=== PATIENT | female | born 1945 | race Caucasian/White ===

== ENCOUNTER 2024-10-19 21:22 | Emergency (ER) | payer MEDICARE, SELFPAY ==
[2024-10-19 21:23] VITALS: BP 143/120
[2024-10-19 21:46] VITALS: BP 140/77
[2024-10-19 22:00] VITALS: BP 139/72
--- NOTE | 2024-10-19 22:16 | ED.GENMED ---
History of Present Illness
<Ubaldo Campbell MD, Resident - Last Filed: 10/20/24 00:45>
General
Chief Complaint: Blood Pressure Problem
Source: patient and family
Exam Limitations: none
Time Seen by Provider: 10/19/24 22:14
Nursing documentation reviewed up to this point in time: agreed with
History of Present Illness
History of Present Illness:
This is a 79-year-old female with history of hyperlipidemia and hypertension on simvastatin and propranolol presenting today in the emergency department after an episode of diaphoresis and discomfort in bilateral upper extremities. She reported
that she had similar symptoms twice 2 days ago. The symptoms lasted only for few minutes. She states it is mostly discomfort and not pain. She never had similar episodes in the past. Her family thinks that when it happened again today she
panicked and that is why she had some sweating.
Additionally she informed me that she was not using simvastatin for few weeks and recently restarted it.
Off note she had some hemorrhoidal bleeding last week which resolved after using suppository recommended by PCP office.
She denies any other recent changes in medical history.
Past History
<Ubaldo Campbell MD, Resident - Last Filed: 10/20/24 00:45>
Past History
ED Past Medical History: GERD, HTN, Hypercholesterolemia and Other (Capone's palsy, hemorrhoids, essential tremors, nonalcoholic fatty liver, osteopenia)
ED Past Surgical History:
Social History
Tobacco: Non-smoker
Alcohol: None
Personal:
Living: with family
Employment: Retired
Family History
Family History: Other (Noncontributory)
Review of Systems
<Ubaldo Campbell MD, Resident - Last Filed: 10/20/24 00:45>
Review of Systems
Other source history: family
Constitutional: Reports no symptoms
EENT: Reports no symptoms
Respiratory: Reports no symptoms
Cardiac: Reports no symptoms
ABD/GI: Reports no symptoms
: Reports no symptoms
Musculoskeletal: Reports muscle pain (Bilateral upper extremity muscular discomfort; resolved upon arrival in the ER)
Neurological: Reports no symptoms
Endocrine: Reports no symptoms
Hematologic/Lymphatic: Reports no symptoms
Psychiatric: Reports no symptoms
Phy Exam
<Ubaldo Campbell MD, Resident - Last Filed: 10/20/24 00:45>
General Physical Exam
General Presentation: well appearing
General age: appears stated age
General Skin: warm
General Habitus: normal
General Mental: alert
General Hydration: appears well hydrated
Eye Exam
Eye Exam: PERRL, EOMI and conjunctiva normal
Gastrointestinal Exam
Gastrointestinal Exam: normal bowel sounds, non tender, soft and non distended
Neurological Exam
Neurological Exam: alert and oriented x3
Sensory
Sensory Exam: intact
Musculoskeletal Exam
Musculoskeletal Exam: full ROM
Psychiatric Exam
Psychiatric Exam: normal mood/affect
Course
<Ubaldo Campbell MD, Resident - Last Filed: 10/20/24 00:45>
Orders/Labs/Results
Orders:
Orders
10/19/24 21:26
ECG [Electrocardiogram (*1)] Urgent
Reason for Study: Hypertension, Benign
10/19/24 21:27
EKG- Treatment ONCE
10/19/24 23:24
Basic Metabolic Panel Urgent
Complete Blood Count/With Diff Urgent
Troponin I Urgent
Abnormal Lab Results
10/19/24
23:24
Chloride 110 H mmol/L
(98-107)
BUN 19 H mg/dl
(7-17)
Glucose 104 H mg/dl
(70-99)
10/19/24 23:24
10/19/24 23:24
Vital Signs
Initial and Last Documented VS:
Initial Vital Signs
Temp Pulse Resp BP Pulse Ox
97.6 F 65 18 143/120 98
10/19/24 21:23 10/19/24 21:23 10/19/24 21:23 10/19/24 21:23 10/19/24 21:23
Last Documented Vital Signs
Temp Pulse Resp BP Pulse Ox
97.6 F 57 16 149/71 96
10/19/24 21:23 10/20/24 00:00 10/20/24 00:00 10/19/24 23:21 10/20/24 00:00
<Floyd Hanks, DO - Last Filed: 10/19/24 23:10>
Orders/Labs/Results
Orders:
Orders
10/19/24 21:26
ECG [Electrocardiogram (*1)] Urgent
Reason for Study: Hypertension, Benign
10/19/24 21:27
EKG- Treatment ONCE
10/19/24 23:24
Basic Metabolic Panel Urgent
Complete Blood Count/With Diff Urgent
Troponin I Urgent
Abnormal Lab Results
10/19/24
23:24
Chloride 110 H mmol/L
(98-107)
BUN 19 H mg/dl
(7-17)
Glucose 104 H mg/dl
(70-99)
10/19/24 23:24
10/19/24 23:24
Vital Signs
Initial and Last Documented VS:
Initial Vital Signs
Temp Pulse Resp BP Pulse Ox
97.6 F 65 18 143/120 98
10/19/24 21:23 10/19/24 21:23 10/19/24 21:23 10/19/24 21:23 10/19/24 21:23
Last Documented Vital Signs
Temp Pulse Resp BP Pulse Ox
97.6 F 57 16 149/71 96
10/19/24 21:23 10/20/24 00:00 10/20/24 00:00 10/19/24 23:21 10/20/24 00:00
<Ubaldo Campbell MD, Resident - Last Filed: 10/20/24 00:45>
MDM/Problems Addressed
Differential Diagnosis Includes:
Medication(statin) side effect vs anemia vs less likely cardiac vs less likely hypoglycemia vs less likely thyroid disease
MDM/Problems Addressed:
Labs reviewed from [facility] from 09/28 , CBC, CMP, TSH, lipid unremarkable.
Will check repeat cbc, bmp, trops, ekg.
update 11:58: cbc, cmp, trops unremarkable.
Patient is stable for discharge. Advised to follow-up with primary care physician to discuss further and potentially discussion on the use of statin as that could be one of the possibility for her current symptoms. She referred understanding
<Ubaldo Campbell MD, Resident - Last Filed: 10/20/24 00:45>
*Pulse Oximetry
SaO2: 97
Oxygen Mode of Delivery: Room air
Patient hypoxic: no
<Floyd Hanks, DO - Last Filed: 10/19/24 23:10>
*EKG
Interpreted by ED Provider?: Yes
EKG Intrepretation Date: 10/19/24
EKG Intrepretation Time: 21:29
Interpretation: normal
Comparison EKG: no comparison EKG present
Heart Rate: 70
Rate: normal
Rhythm: sinus
[place]: normal axis
Interval: normal interval
QRS Pattern: normal QRS
Ischemia: no ischemia
*Tube Sorter Interpretation
Rate: normal
Interpretation: normal
Heart Rate: 72
Rhythm: sinus
*Critical Care Note
Total Time (30-74mins, 75-104mins- exclusive of procedures): Not Applicable
ED Attending Note
<Ubaldo Campbell MD, Resident - Last Filed: 10/20/24 00:45>
-
Portions of this chart may have been created with voice recognition software.� Occasional wrong word or��sound alike� substitutions may have occurred due to the inherent limitations of voice recognition software.
<Floyd Hanks, DO - Last Filed: 10/19/24 23:10>
ED Attending Note
Patient seen and examined by attending physician: Yes
I performed a history and physical exam of patient and discussed management with resident, I reviewed resident's note and agree with documented findings and plan of care.: Yes
ED Attending Note:
I reviewed and agree with history and treatment plan by Ubaldo Campbell MD. My exam revealed
Physical Exam
General: no apparent distress, not acutely ill
Neck: supple. no meningeal signs. normal posterior pharynx
Heart: s1/s2 regular rate and rhythm, no murmur. equal radial
pulses.
HEENT: Pupils equal round reactive to light, EOMI
Lungs: no acute respiratory distress. clear bilaterally
Abdomen: normal bowel sounds. not tender. no CVAT
Neuro: alert and oriented. no focal neurological deficits cranial nerves II through XII intact
Skin: no rash
Psychiatric: well kept. interactive and cooperative
Extremities: no edema. no calf tenderness. negative homans. good distal pulses
Patient with multiple episodes of intermittent left arm pain and right hand pain. She had an episode of diaphoresis as well. The symptoms all occurred at rest. She denies any chest pain. First episode started several days ago. Will check
troponin CBC and BMP. EKG normal. No ischemia. If negative, patient will be discharged to follow-up with primary care.
Discharge Plan
Departure
Patient Disposition: Home (Routine Discharge)
Date of Disposition: 10/20/24
Time of Disposition: 00:21
Patient with high blood pressure during this ER visit?: Yes
Condition: Good
Discharge Problem:
Arm pain
Instructions: BLOOD PRESSURE
Prescriptions:
No Action
propranolol 60 MG capsule,extended release 24 hr
60 mg PO DAILY
simvastatin 40 MG tablet
40 mg PO QPM
aspirin 81 MG tablet,chewable
81 mg PO .EVERYOTHERDAY
prednisone 20 MG tablet
40 mg PO DAILY Qty: 10 0RF
Rx Instructions:
40 mg daily for 4 days, then 20 mg daily for 2 days. Take with food.
valacyclovir [Valtrex] 1,000 MG tablet
2,000 mg PO Q12H Qty: 4 1RF
amoxicillin-pot clavulanate 1 TABLET tablet
1 tab PO Q12 Qty: 14 0RF
Referrals:
Aidan Hernandez MD, Resident [Family Practice Resident Year3, General] - Follow up in 1 week
UNKNOWN - PT DOES,NOT KNOW [Family Provider]
Activity Restrictions/Additional Instructions:
You were seen at the [facility] emergency department with concerns of bilateral arm discomfort. During your stay at the hospital blood tests including complete blood count, basic metabolic profile troponin level in the blood and EKG were
performed, all values came back unremarkable.
You are advised to follow-up with your primary care physician to discuss the use of simvastatin as this could be a possible side effect from the medication.
Interventions
Interventions:
*Risk Screen - Suicide Last Done: 10/19/24 21:23
*General Assessment Last Done: 10/19/24 22:10
*Neglect/Abuse Screening Last Done: 10/19/24 21:23
*ED- Fall Risk Assessment Last Done: 10/19/24 22:10
*ED COVID-19 Vaccine History Last Done: 10/19/24 22:10
ED- Cardiac Assessment Last Done: 10/19/24 22:10
ED- Neurological Assessment Last Done: 10/19/24 22:10
ED- Pulmonary Assessment Last Done: 10/19/24 22:10
Discharge Date and Time
Print Language: JAPANESE
[2024-10-19 23:21] VITALS: BP 149/71
[2024-10-19 23:28] LABS: Hematocrit 38.4 % (37.0-47.0); Hemoglobin 13.2 g/dL (12.0-16.0); Mean Corp Hgb Conc. 34.4 g/dL (33.0-37.0); Mean Corpuscular Volume 89.3 fL (81.0-99.0); Nucleated Red Blood Cells % 0 %; Platelet Count 224 10^3/uL (130-400); Red Cell Dist. Width 12.8 % (11.5-14.5)
[2024-10-19 23:49] LABS: Blood Urea Nitrogen 19 mg/dl (7-17); Calcium 9.1 mg/dl (8.4-10.2); Carbon Dioxide 28 mmol/L (22-30); Chloride 110 mmol/L (98-107); Glucose 104 mg/dl (70-99); Potassium 4.2 mmol/L (3.5-5.1); Sodium 142 mmol/L (135-145); eGFR > 60.00
[2024-10-19 23:53] LABS: Troponin I < 0.012 ng/ml
== END 2024-10-20 00:46 | disposition home or self-care (01) ==
LOC: EMR 21:22
PROVIDERS: EMERGENCY PHYSICIAN Emergency Medicine
DX: M79.603 Pain in arm, unspecified (principal); E78.00 Pure hypercholesterolemia, unspecified; I10 Essential (primary) hypertension; G25.0 Essential tremor; K76.0 Fatty (change of) liver, not elsewhere classified; M85.80 Other specified disorders of bone density and structure, unspecified site; Z87.19 Personal history of other diseases of the digestive system
CPT/HCPCS: 99283; 80048; 84484; 85025; 93005

== ENCOUNTER 2024-12-13 18:38 | Emergency (ER) | payer MEDICARE, SELFPAY ==
[2024-12-13 18:52] VITALS: BP 136/91
[2024-12-13 19:43] LABS: ALT (SGPT) 25 U/L (0-35); AST (SGOT) 24 U/L (14-36); Albumin 4.0 g/dl (3.5-5.0); Alkaline Phosphatase 88 U/L (38-126); Blood Urea Nitrogen 21 mg/dl (7-17); Calcium 9.2 mg/dl (8.4-10.2); Carbon Dioxide 30 mmol/L (22-30); Chloride 105 mmol/L (98-107); Glucose 120 mg/dl (70-99); Potassium 4.4 mmol/L (3.5-5.1); Sodium 139 mmol/L (135-145); Total Protein 7.1 g/dl (6.3-8.2); eGFR > 60.00
[2024-12-13 21:13] VITALS: BP 137/60
--- NOTE | 2024-12-13 22:38 | ED.GENMED ---
History of Present Illness
General
Chief Complaint: Numbness
Source: patient
Exam Limitations: none
Time Seen by Provider: 12/13/24 22:02
Nursing documentation reviewed up to this point in time: agreed with
History of Present Illness
History of Present Illness:
Note:
CHIEF COMPLAINT(S)
Numbness and tingling in fingers.
HISTORY OF PRESENT ILLNESS
The patient is a 79-year-old female presenting with complaints of numbness and tingling primarily localized to her fingers, which she describes as a sensation 'like a nerve thing.' The symptoms began intermittently three weeks ago and have since
been episodic, not persistent, in nature. She primarily experiences the tingling in her right arm and two of her fingers. There has been no associated neck or shoulder pain, and pressure on her head does not exacerbate symptoms. She notes that the
numbness and tingling are not severe and come and go. Her medical history includes being on statin therapy, which she takes daily as directed by her previous physician for cholesterol management, and propranolol. There is a concern that the statin
may be contributing to her symptoms, but she has not yet reduced her intake frequency to three times a week as recommended. Additionally, she is scheduled for a colonoscopy on December 20 due to rectal bleeding from hemorrhoids, with the intention
of ruling out polyps. Attempts to hydrate her should be increased to potentially alleviate her symptoms, and a modification of her statin dosing to every other day is suggested. She reports no chest pain, shortness of breath, or new headaches.
PAST MEDICAL HISTORY
Long-term use of statins for cholesterol management.
MEDICATIONS
Statins (unspecified dosage).
Propranolol (unspecified dosage).
REVIEW OF SYSTEMS
- Neurological: Numbness and tingling in fingers, described as a 'nerve thing.'
- Cardiovascular: No chest pain.
- Respiratory: No shortness of breath.
- HEENT (Head, Eyes, Ears, Nose, Throat): No new headaches.
- Gastrointestinal: Scheduled colonoscopy due to rectal bleeding from hemorrhoids.
- Musculoskeletal: No associated neck or shoulder pain.
PHYSICAL EXAM
General: Alert, no acute distress.
Skin: Warm, dry.
Head: Normocephalic, atraumatic.
Neck: Supple, trachea midline.
Eye, Ears, Nose, Mouth, and Throat: Oral mucosa moist.
Cardiovascular: Normal peripheral perfusion, No edema.
Respiratory: Respirations are non-labored.
Gastrointestinal: Abdomen nondistended.
Back: Normal range of motion, Normal alignment.
Musculoskeletal: Normal range of motion, normal strength.
Neurological: Alert and oriented to person, place, time, and situation, No focal neurological deficit observed.
Psychiatric: Cooperative, appropriate mood & affect.
PLAN
1. EKG review to ensure safety for statin continuation adjustment.
2. Adjust statin dosing to every other day, monitor response.
3. Encourage hydration to potentially alleviate symptoms related to statin use.
4. Prepare for colonoscopy on December 20 to assess for polyps in the presence of hemorrhoidal bleeding.
DIFFERENTIAL DIAGNOSIS
The Differential Diagnosis includes, in no particular order and is not limited to:
1. Peripheral neuropathy
2. Diabetic neuropathy
3. Carpal tunnel syndrome
4. Cervical radiculopathy
5. Vitamin B12 deficiency
6. Electrolyte imbalances
7. Statin-induced neuropathy
8. Multiple sclerosis
9. Ulnar nerve entrapment
10. Arthritis-related nerve compression
EKG
My independent EKG interpretation is:
- Date and Time of EKG: December 13, 2024, at 6:57
- Rhythm: Normal sinus rhythm
- Heart Rate: 71 bpm
- Intervals: Normal intervals
- [place]: Common normal axis
- Abnormalities: No evidence of acute ischemia
- Comparison: No obvious morphological change compared to EKG dated October 19, 2024
Disposition:
SUMMARY OF ENCOUNTER
The patient is a 79-year-old female presenting with intermittent right-sided paresthesia, affecting the ring and pinky fingers of her right hand. This sensation is described to be in the distribution of a nerve. The symptoms have been present
intermittently over the last few weeks and were initially evaluated in October, but have not resolved or worsened. The patient was concerned due to an upcoming colonoscopy and wanted the symptoms reassessed. Her lab work was essentially normal, but
chemistry indicated slight dehydration. She declined further hematology testing. The current plan involves adjusting her simvastatin dosage and monitoring for any improvement.
DISPOSITION
The patient was discharged home in stable condition.
PLAN
- Adjust the dosage of simvastatin.
- Monitor for improvement of symptoms.
- Increase hydration to potentially address symptoms related to dehydration.
INDEPENDENT REVIEW OF LABS AND INTERPRETATION OF TESTS
My independent review of chemistry indicates slight dehydration.
PATIENT EDUCATION AND COUNSELING
The patient was advised to adjust her simvastatin dosage and increase hydration. She was informed about monitoring her symptoms and the relation of dehydration to her complaint.
FOLLOW-UP INSTRUCTIONS
The patient is encouraged to follow up with her family doctor regarding the adjustment of simvastatin and for any further concerns.
MEDICAL DECISION MAKING
-Complexity of Data Reviewed: Chronic conditions affecting care include long-term use of statins for cholesterol management. Differential diagnosis includes peripheral neuropathy, diabetic neuropathy, carpal tunnel syndrome, cervical radiculopathy,
vitamin B12 deficiency, electrolyte imbalances, statin-induced neuropathy, multiple sclerosis, ulnar nerve entrapment, and arthritis-related nerve compression.
-Data:
Category 1
Non-emergency department records reviewed: Chemistry.
Category 3
The patient discussed her symptoms and management options with her family doctor.
-Risk:
Prescription medication was adjusted, specifically the dosage of simvastatin.
DIAGNOSIS
- Paresthesia of the right hand (ICD-10: R20.2)
- Dehydration (ICD-10: E86.0)
Past History
Past History
ED Past Medical History: GERD, HTN, Hypercholesterolemia and Other (Capone's palsy, hemorrhoids, essential tremors, nonalcoholic fatty liver, osteopenia)
ED Past Surgical History:
Social History
Tobacco: Non-smoker
Alcohol: None
Personal:
Living: with family
Employment: Retired
Family History
Family History: Other (Noncontributory)
Phy Exam
Physical Exam
Physical Exam:
.
Course
Orders/Labs/Results
Orders:
Orders
12/13/24 18:54
EKG [Electrocardiogram (*1)] Urgent
Reason for Study: Fatigue / Weakness
EKG- Treatment ONCE
12/13/24 19:11
Comprehensive Metabolic Panel Urgent
Abnormal Lab Results
12/13/24
19:11
BUN 21 H mg/dl
(7-17)
Glucose 120 H mg/dl
(70-99)
12/13/24 18:53
12/13/24 19:11
Vital Signs
Initial and Last Documented VS:
Initial Vital Signs
Temp Pulse Resp BP Pulse Ox
98.3 F 74 16 136/91 98
12/13/24 18:52 12/13/24 18:52 12/13/24 18:52 12/13/24 18:52 12/13/24 18:52
Last Documented Vital Signs
Temp Pulse Resp BP Pulse Ox
98.3 F 74 20 137/60 97
12/13/24 18:52 12/13/24 22:30 12/13/24 22:30 12/13/24 21:13 12/13/24 22:39
*Pulse Oximetry
SaO2: 97
Oxygen Mode of Delivery: Room air
Patient hypoxic: no
*Critical Care Note
Total Time (30-74mins, 75-104mins- exclusive of procedures): Not Applicable
ED Attending Note
-
Portions of this chart may have been created with voice recognition software.� Occasional wrong word or��sound alike� substitutions may have occurred due to the inherent limitations of voice recognition software.
Discharge Plan
Departure
Patient Disposition: Home (Routine Discharge)
Date of Disposition: 12/13/24
Time of Disposition: 22:40
Patient with high blood pressure during this ER visit?: Yes
Discharge Problem:
Arm paresthesia, right
Instructions: Peripheral Neuropathy (DC), Paresthesia (DC), BLOOD PRESSURE
Prescriptions:
No Action
propranolol 60 MG capsule,extended release 24 hr
60 mg PO DAILY
simvastatin 40 MG tablet
40 mg PO QPM
aspirin 81 MG tablet,chewable
81 mg PO .EVERYOTHERDAY
prednisone 20 MG tablet
40 mg PO DAILY Qty: 10 0RF
Rx Instructions:
40 mg daily for 4 days, then 20 mg daily for 2 days. Take with food.
valacyclovir [Valtrex] 1,000 MG tablet
2,000 mg PO Q12H Qty: 4 1RF
amoxicillin-pot clavulanate 1 TABLET tablet
1 tab PO Q12 Qty: 14 0RF
Referrals:
Alex Maxwell MD [Active, Gastroenterology] - Keep scheduled appt
Activity Restrictions/Additional Instructions:
A copy of your labs were included in this discharge packet. Your hematology labs are not present because it needed to be redrawn and you did not choose to do so.
Thank You for choosing [facility].
It was a pleasure meeting you and taking part in your care. We hope for your continued healing and wellness.
Please read discharge instructions in their entirety. However, they are for general education and may not describe your exact diagnosis at discharge. Information on your ER visit and medical conditions were discussed with you along with appropriate
follow up information...
If indicated, please take your medications as instructed and indicated on discharge paperwork.
Please schedule a follow up appointment as directed. Call to schedule an appointment
Please return to the emergency department with ANY change in, persisting, or worsening of symptoms. If any of your symptoms do not improve, or persist, or become more severe within 6-12 hours, please return to the emergency department for further
care.
Please return to the emergency department if you develop a headache, neck pain/stiffness, fever greater than 100.4F, chest pain, shortness of breath, persistent nausea, vomiting, slurred speech, difficulty walking, numbness/tingling, weakness, signs
of infection or any other symptoms that are worrisome to you.
If you have any questions or concerns please do not hesitate to call the Hospital at or E-mail me directly at [email or web address]
Interventions
Interventions:
*Risk Screen - Suicide Last Done: 12/13/24 18:52
*General Assessment Last Done: 12/13/24 21:14
*Neglect/Abuse Screening Last Done: 12/13/24 18:52
*ED- Fall Risk Assessment Last Done: 12/13/24 21:14
*ED COVID-19 Vaccine History Last Done: 12/13/24 21:14
*Nursing Disposition Last Done: 12/13/24 22:52
ED- Neurological Assessment Last Done: 12/13/24 21:14
Discharge Date and Time
Discharge Date/Time: 12/13/24 22:53
Print Language: SUDANESE
== END 2024-12-13 22:53 | disposition home or self-care (01) ==
LOC: EMR 18:38
PROVIDERS: Emergency Medicine; EMERGENCY PHYSICIAN Student in an Organized Health Care Education/Training Program
DX: R20.2 Paresthesia of skin (principal); E86.0 Dehydration; I10 Essential (primary) hypertension; E78.00 Pure hypercholesterolemia, unspecified; K21.9 Gastro-esophageal reflux disease without esophagitis; K64.9 Unspecified hemorrhoids; K76.0 Fatty (change of) liver, not elsewhere classified; G25.0 Essential tremor; M85.80 Other specified disorders of bone density and structure, unspecified site
CPT/HCPCS: 99283; 80053; 93005

== ENCOUNTER 2024-12-20 07:54 | Emergency (ER) | payer MEDICARE, SELFPAY ==
[2024-12-20 07:57] VITALS: BP 151/107
[2024-12-20 08:03] VITALS: BP 161/75
[2024-12-20 08:25] VITALS: BP 161/75
--- NOTE | 2024-12-20 08:25 | ED.CVA ---
History of Present Illness
General
Chief Complaint: CVA/TIA Symptoms
Source: patient and family
Exam Limitations: none
Time Seen by Provider: 12/20/24 08:04
Onset of Stroke Symptoms
Onset of symptoms known: Yes
Date of onset of symptoms: 12/20/24
Date last time pt seen normal: 12/20/24
History of Present Illness
History of Present Illness:
See MDM
Past History
Past History
ED Past Medical History: GERD, HTN, Hypercholesterolemia and Other (Capone's palsy, hemorrhoids, essential tremors, nonalcoholic fatty liver, osteopenia)
ED Past Surgical History:
Social History
Tobacco: Non-smoker
Alcohol: None
Personal:
Living: with family
Employment: Retired
Family History
Family History: Other (Noncontributory)
Phy Exam
Physical Exam
Physical Exam:
See MDM
NIH Stroke Score
Level of Consciousness: 0 - Alert
LOC questions: 0-Answers both correctly
LOC Commands: 0-Performs both correctly
Best Gaze: 0-Normal
Visual [place]: 0=Normal, no visual loss
Facial palsy: 0=Normal, symmetrical
Motor - Right Arm: 0=No drift 10 seconds
Motor - Left Arm: 0=No drift 10 seconds
Motor - Right Le-No drift 5 seconds
Motor - Left Le-No drift 5 seconds
Limb Ataxia: 0-Absent
Sensation: 0-Normal
Best Language: 0-No aphasia
Dysarthria: 0-Normal
Extinction and Inattention: 0-No abnormality
Total Score:: 0
Course
Orders/Labs/Results
Orders:
Orders
12/20/24 08:22
CT Head & Neck Angio W/wo IV Urgent
Comment:
Reason For Exam: resolved slurred speech
Cardiac Monitoring- Treatment ONCE
12/20/24 08:23
Electrocardiogram (*1) Stat
Reason for Study: Other
Other Reason for Exam: neuro symptoms
EKG- Treatment ONCE
12/20/24 08:35
Complete Blood Count/With Diff Urgent
Comprehensive Metabolic Panel Urgent
PTT Urgent
Prothrombin Time Urgent
12/20/24 11:52
Aspirin Chewable [Low Strength Aspirin] 81 mg PO NOW STA
Clopidogrel Bisulfate [Plavix] 75 mg PO NOW STA
Abnormal Lab Results
12/20/24
08:35
Glucose 102 H mg/dl
(70-99)
Total Bilirubin 1.4 H mg/dl
(0.2-1.3)
12/20/24 08:35
12/20/24 08:35
Vital Signs
Initial and Last Documented VS:
Initial Vital Signs
Temp Pulse Resp BP Pulse Ox
98.0 F 67 16 151/107 98
12/20/24 07:57 12/20/24 07:57 12/20/24 07:57 12/20/24 07:57 12/20/24 07:57
Last Documented Vital Signs
Temp Pulse Resp BP Pulse Ox
98.0 F 67 22 134/78 98
12/20/24 07:57 12/20/24 10:54 12/20/24 10:54 12/20/24 11:00 12/20/24 09:30
MDM/Problems Addressed
Differential Diagnosis Includes:
Note:
CHIEF COMPLAINT(S)
- Tingling in the arm and hand, garbled speech, drooping of the left side of the face.
HISTORY OF PRESENT ILLNESS
This is a 79-year-old female who presented with concerns of stroke-like symptoms during the preparation for a scheduled colonoscopy. She reported experiencing tingling in her arm and hand initially. The patient has had a history of intermittent arm
tingling for about a month, without prior similar symptoms in her legs. This morning, while preparing for her procedure at 11:30 AM, she started speaking funny, which her described as garbled speech, and noticed drooping on the left side of
her face. Further symptoms included a tingling sensation in the back of both legs. Earlier on, the patient experienced a headache described as occurring both in the front and back of her head, but she denies any history of transient ischemic attacks
(TIA) or strokes. Neurological evaluation by her primary doctor and a neurologist has not confirmed any such events. Additionally, she recalls a previous comment from another doctor considering the possibility of the arm being a side effect of her
statin.
EXTERNAL RECORDS REVIEWED
The patient mentioned past medical examinations including evaluation by her primary care doctor and a neurologist, though details of these findings or records were not specified. She recalls being told that all tests previously conducted came back
normal.
CHRONIC MEDICAL CONDITIONS SIGNIFICANTLY AFFECTING CARE
The patient has a history of hemorrhoidal bleeding and previous hemorrhoid treatment.
REVIEW OF SYSTEMS
- Neurological: Tingling in the right arm and hand, drooping on the left side of the face, garbled speech that lasted approximately two minutes.
- Musculoskeletal: Tingling sensation in the back of both legs.
- Head: Occasional headaches in the frontal and occipital region.
PHYSICAL EXAM
General: Alert, no acute distress.
Skin: Warm, dry.
Head: Normocephalic, atraumatic
Neck: Appears supple, trachea midline.
Eyes, Ears, Nose, Mouth, and Throat: Oral mucosa moist.
Cardiovascular: No signs of cyanosis. Regular rate and rhythm
Respiratory: Respirations are non-labored.
Abdomen: Non-distended
Musculoskeletal: No deformities
Neurological: No focal neurological deficit observed.
Psychiatric: Cooperative, appropriate mood and affect.
PROBLEM LIST
Acute:
- Tingling in the arm and hand.
- Garbled speech.
- Drooping of the left side of the face.
- Headache.
Chronic:
- Hemorrhoids with bleeding.
PLAN
- Further evaluation to rule out any potential cerebrovascular events.
- Consideration of a complete neurological examination and possibly imaging, if clinically indicated, given the report of drooping and speech alteration.
- Review of medication use or other potential toxic factors that could contribute to symptoms, particularly those that may affect the nervous system.
- Gastrointestinal follow-up for ongoing hemorrhoid issues and potential colonoscopy rescheduling if clinically feasible.
- Case discussed with neurologist who agrees with CT angiogram head and neck and to start dual antiplatelet therapy with concerns for TIA
DIFFERENTIAL DIAGNOSIS
The Differential Diagnosis includes, in no particular order and is not limited to:
- Transient Ischemic Attack
- Stroke
- Peripheral Neuropathy
- Hypervitaminosis or Vitamin Deficiency
- Hemorrhagic Stroke
- Anxiety Reaction
- Hemodynamic Instability Secondary to Colonic Bleeding
- Cervical Radiculopathy
- Multifocal Motor Neuropathy
- Multiple Sclerosis
My independent EKG interpretation is:
- Time of EKG: [Not specified]
- Rhythm: Sinus bradycardia
- Heart Rate: 55 beats per minute
- [place]: Normal axis
- NM Interval: [Not specified]
- QRS Duration: [Not specified]
- QT Interval: [Not specified]
- Abnormalities: No ST elevation, no ectopic beats
*Pulse Oximetry
SaO2: 99
Oxygen Mode of Delivery: Room air
Patient hypoxic: no
*Critical Care Note
Total Time (30-74mins, 75-104mins- exclusive of procedures): Not Applicable
ED Attending Note
-
Portions of this chart may have been created with voice recognition software.� Occasional wrong word or��sound alike� substitutions may have occurred due to the inherent limitations of voice recognition software.
Discharge Plan
Departure
Patient Disposition: Home (Routine Discharge)
Date of Disposition: 12/20/24
Time of Disposition: 11:53
Patient with high blood pressure during this ER visit?: No
Discharge Problem:
Brain TIA
Instructions: Transient Ischemic Attack (DC)
Prescriptions:
New
aspirin 81 mg tablet
81 mg PO DAILY Qty: 21 0RF
clopidogrel [Plavix] 75 mg tablet
75 mg PO DAILY Qty: 21 0RF
No Action
propranolol 60 MG capsule,extended release 24 hr
60 mg PO DAILY
simvastatin 40 MG tablet
40 mg PO QPM
aspirin 81 MG tablet,chewable
81 mg PO .EVERYOTHERDAY
prednisone 20 MG tablet
40 mg PO DAILY Qty: 10 0RF
Rx Instructions:
40 mg daily for 4 days, then 20 mg daily for 2 days. Take with food.
valacyclovir [Valtrex] 1,000 MG tablet
2,000 mg PO Q12H Qty: 4 1RF
amoxicillin-pot clavulanate 1 TABLET tablet
1 tab PO Q12 Qty: 14 0RF
Referrals:
Hernandez Johnson MD, Resident [Family Provider, General]
Activity Restrictions/Additional Instructions:
Please return for any worsening symptoms.
You may return at any time if you have further concerns.
Please follow up with your doctor at the first available appointment, preferably this week.
Please talk to your doctor about further outpatient stroke workup which may include a Holter monitor, an echo and possibly a brain MRI.
Thank you for choosing [facility].
Interventions
Interventions:
*Risk Screen - Suicide Last Done: 12/20/24 07:57
*General Assessment Last Done: 12/20/24 08:14
*Neglect/Abuse Screening Last Done: 12/20/24 07:57
*ED- Fall Risk Assessment Last Done: 12/20/24 08:14
*ED COVID-19 Vaccine History Last Done: 12/20/24 08:17
ED- Pulmonary Assessment Last Done: 12/20/24 08:14
ED- Neurological Assessment Last Done: 12/20/24 08:14
ED- Cardiac Assessment Last Done: 12/20/24 08:14
ED Swallowing Screen Last Done: 12/20/24 08:20
Discharge Date and Time
Print Language: OCCITAN
[2024-12-20 08:49] LABS: Hematocrit 45.5 % (37.0-47.0); Hemoglobin 15.1 g/dL (12.0-16.0); Mean Corp Hgb Conc. 33.2 g/dL (33.0-37.0); Mean Corpuscular Volume 90.1 fL (81.0-99.0); Nucleated Red Blood Cells % 0 %; Platelet Count 269 10^3/uL (130-400); Red Cell Dist. Width 12.7 % (11.5-14.5)
[2024-12-20 08:54] LABS: INR 1.04; PT 14.1 Sec (11.4-14.6)
[2024-12-20 08:55] LABS: APTT 28.9 Sec (23.4-35.0)
[2024-12-20 09:00] VITALS: BP 141/79
[2024-12-20 09:04] LABS: ALT (SGPT) 23 U/L (0-35); AST (SGOT) 25 U/L (14-36); Albumin 4.6 g/dl (3.5-5.0); Alkaline Phosphatase 80 U/L (38-126); Blood Urea Nitrogen 14 mg/dl (7-17); Calcium 9.8 mg/dl (8.4-10.2); Carbon Dioxide 29 mmol/L (22-30); Chloride 105 mmol/L (98-107); Estimated Creatinine Clearance 50 ml/min; Glucose 102 mg/dl (70-99); Potassium 4.5 mmol/L (3.5-5.1); Sodium 143 mmol/L (135-145); Total Protein 8.2 g/dl (6.3-8.2); eGFR > 60.00
[2024-12-20 10:00] VITALS: BP 138/92
[2024-12-20 11:00] VITALS: BP 134/78
[2024-12-20] MEDS: PLAVIX 75 MG PO (11:57)
[2024-12-20] MEDS: LOW STRENGTH ASPIRIN 81 MG PO (11:57)
== END 2024-12-20 12:08 | disposition home or self-care (01) ==
LOC: EMR 07:54
PROVIDERS: EMERGENCY PHYSICIAN Student in an Organized Health Care Education/Training Program
DX: G45.9 Transient cerebral ischemic attack, unspecified (principal); I10 Essential (primary) hypertension; E78.00 Pure hypercholesterolemia, unspecified; G25.0 Essential tremor; K64.9 Unspecified hemorrhoids; K76.0 Fatty (change of) liver, not elsewhere classified; M85.80 Other specified disorders of bone density and structure, unspecified site; R47.81 Slurred speech
CPT/HCPCS: 99284; 70496; 70498; 80053; 85025; 85610; 85730; 93005; Q9967

== ENCOUNTER → 2025-02-08 17:57 | Outpatient (REF) | payer MEDICARE, SELFPAY | LOC: MRI 17:57 | DX: R29.818 Other symptoms and signs involving the nervous system (principal) | CPT/HCPCS: 70553; A9575 ==